=== PATIENT | male | born 1960 | race Native Hawaiian/Other Pacific Islander ===

== ENCOUNTER 2018-10-19 10:19 | Inpatient (IN) | payer SELFPAY ==
--- NOTE | 2018-10-19 10:51 | Emergency Department Report ---
ED General Adult HPI - General Chief complaint: Abdominal Pain Stated complaint: BODY PAIN Time Seen by Provider: 10/19/18 10:41 Source: patient Mode of arrival: Ambulatory Limitations: No Limitations - History of Present Illness Initial comments: Patient is 58 years old male with no significant past medical history. Impression presented to the ER initially telling the triage nurse that he is having abdominal pain. When I went to examine the patient patient stated that he is mata and he was playing with a cucumber last night and part of the cucumber broke into his rectum and patient stating that he is having difficulty getting it out and since then he has been having rectal pain. The patient denied any rectal bleeding, fever, nausea or vomiting. ED Review of Systems ROS: Stated complaint: BODY PAIN Other details as noted in HPI Comment: All other systems reviewed and negative Constitutional: denies: chills, fever Cardiovascular: denies: chest pain, palpitations, dyspnea on exertion Gastrointestinal: other (rectal pain). denies: abdominal pain, nausea, vomiting, diarrhea, constipation, hematemesis, melena, hematochezia Musculoskeletal: denies: back pain, joint swelling, arthralgia, myalgia Neurological: denies: headache, weakness ED Past Medical Hx - Past Medical History Previous Medical History?: No - Surgical History Past Surgical History?: No - Social History Smoking Status: Never Smoker Substance Use Type: None ED Physical Exam - General Limitations: No Limitations General appearance: alert, in no apparent distress - Eye Eye exam: Present: normal appearance - ENT ENT exam: Present: normal exam, normal orophraynx, mucous membranes moist - Neck Neck exam: Present: normal inspection, full ROM. Absent: tenderness, meningismus, lymphadenopathy, thyromegaly - Respiratory Respiratory exam: Present: normal lung sounds bilaterally - Cardiovascular Cardiovascular Exam: Present: regular rate, normal rhythm, normal heart sounds - GI/Abdominal GI/Abdominal exam: Present: soft, normal bowel sounds. Absent: distended, tenderness, guarding, rebound, rigid - Rectal Rectal exam: Present: normal inspection, normal rectal tone, other (only cucumber seeds extracted by digital rectal exam.) - Extremities Exam Extremities exam: Present: normal inspection, full ROM, normal capillary refill. Absent: pedal edema, calf tenderness - Back Exam Back exam: Present: normal inspection, full ROM. Absent: tenderness, CVA tenderness (R), CVA tenderness (L), muscle spasm, paraspinal tenderness, vertebral tenderness - Neurological Exam Neurological exam: Present: alert, oriented X3, CN II-XII intact, normal gait, reflexes normal - Skin Skin exam: Present: warm, intact, normal color ED Course Vital Signs 10/19/18 10:26 Temperature 97.8 F Pulse Rate 114 H Respiratory 18 Rate Blood Pressure 151/87 O2 Sat by Pulse 100 Oximetry - Consultations Consultation #1: 10/19/18 11:21 I discussed the patient was Dr. Gan. Dr Gan stated that patient need to be nothing by mouth and she is coming down to see the patient. ED Medical Decision Making - Lab Data Result diagrams: 10/19/18 11:05 10/19/18 11:05 - Medical Decision Making Patient is 58 years old male with no significant past medical history. Impression presented to the ER initially telling the triage nurse that he is having abdominal pain. When I went to examine the patient patient stated that he is mata and he was playing with a cucumber last night and part of the cucumber broke into his rectum and patient stating that he is having difficulty getting it out and since then he has been having rectal pain. The patient denied any rectal bleeding, fever, nausea or vomiting. Patient evaluated by . Dr. Gan advises to admit patient for observation. I discussed the patient is Dr. Rico, he agreed to admit to medical service. Critical care attestation.: If time is entered above; I have spent that time in minutes in the direct care of this critically ill patient, excluding procedure time. ED Disposition Clinical Impression: Rectal pain, Foreign body of rectum Disposition: OP ADMIT IP TO THIS HOSP Is pt being admited?: Yes Condition: Stable
[2018-10-19 11:15] LABS: Hematocrit 42.8 % (35.5-45.6); Mean Corpuscular HGB Conc 33 % (32-34); Mean Corpuscular Volume 84 fl (84-94); Platelet Count 235 K/mm3 (140-440); Red Blood Count 5.12 M/mm3 (3.65-5.03); Red Cell Distribution Width 15.6 % (13.2-15.2)
[2018-10-19] MEDS ORDERED: NACL 0.9% 1000 ML 1,000 ML IV ONE (11:23)
[2018-10-19] MEDS ORDERED: ZOFRAN IV ONE (11:23)
[2018-10-19] MEDS ORDERED: MORPHINE IV ONE ×2 (11:23→15:31)
[2018-10-19 11:26] LABS: Alanine Aminotransferase 13 units/L (7-56); Albumin 4.1 g/dL (3.9-5); BUN/Creatinine Ratio 14; Blood Urea Nitrogen 13 mg/dL (9-20); Hemolysis Index 12
--- NOTE | 2018-10-19 13:38 | Consultation ---
History of Present Illness Consult date: 10/19/18 Chief complaint: abdominal pain, foreign body in rectum - History of present illness History of present illness: 58 yo bolivian speaking male with no PMHx presents to ER with c/o abdominal pain and foreign body in rectum. Patient states he placed a cucumber up his rectum and when he went to remove it a piece broke off inside which he has been unable to retrieve. He is having lower abdominal pressure and pain near his rectum. No n/v. No f/c. No cp, sob. Past History Past Medical History: No medical history Past Surgical History: No surgical history Social history: no significant social history Family history: no significant family history Review of Systems All systems: negative (10 pt ROS performed and negative except for that listed in HPI) Exam Vital Signs Temp Pulse Resp BP Pulse Ox 97.8 F 114 H 18 151/87 100 10/19/18 10:26 10/19/18 10:26 10/19/18 10:26 10/19/18 10:26 10/19/18 10:26 Narrative exam: Gen: AAOx3. NAD CV: s1, s2+ resp: even and unlabored Abd: soft, nondistended, mild lower abdominal TTP. no r/r/g Ext: no c/c/e Rectal: (performed with nurse in room). +dark blood on gloved finger. normal prostate. Unable to feel foreign object. No masses Results - Labs 10/19/18 11:05 10/19/18 11:05 Abnormal lab results 10/19/18 10/19/18 Range/Units 11:05 11:05 RBC 5.12 H (3.65-5.03) M/mm3 MCH 27 L (28-32) pg RDW 15.6 H (13.2-15.2) % Glucose 122 H (75-100) mg/dL Diabetes panel 10/19/18 Range/Units 11:05 Sodium 139 (137-145) mmol/L Potassium 4.2 (3.6-5.0) mmol/L Chloride 102.3 (98-107) mmol/L Carbon Dioxide 25 (22-30) mmol/L BUN 13 (9-20) mg/dL Creatinine 0.9 (0.8-1.5) mg/dL Glucose 122 H (75-100) mg/dL Calcium 9.0 (8.4-10.2) mg/dL AST 18 (5-40) units/L ALT 13 (7-56) units/L Alkaline Phosphatase 59 (35-129) units/L Total Protein 6.9 (6.3-8.2) g/dL Albumin 4.1 (3.9-5) g/dL Calcium panel 10/19/18 Range/Units 11:05 Calcium 9.0 (8.4-10.2) mg/dL Albumin 4.1 (3.9-5) g/dL Pituitary panel 10/19/18 Range/Units 11:05 Sodium 139 (137-145) mmol/L Potassium 4.2 (3.6-5.0) mmol/L Chloride 102.3 (98-107) mmol/L Carbon Dioxide 25 (22-30) mmol/L BUN 13 (9-20) mg/dL Creatinine 0.9 (0.8-1.5) mg/dL Glucose 122 H (75-100) mg/dL Calcium 9.0 (8.4-10.2) mg/dL Adrenal panel 10/19/18 Range/Units 11:05 Sodium 139 (137-145) mmol/L Potassium 4.2 (3.6-5.0) mmol/L Chloride 102.3 (98-107) mmol/L Carbon Dioxide 25 (22-30) mmol/L BUN 13 (9-20) mg/dL Creatinine 0.9 (0.8-1.5) mg/dL Glucose 122 H (75-100) mg/dL Calcium 9.0 (8.4-10.2) mg/dL Total Bilirubin 0.40 (0.1-1.2) mg/dL AST 18 (5-40) units/L ALT 13 (7-56) units/L Alkaline Phosphatase 59 (35-129) units/L Total Protein 6.9 (6.3-8.2) g/dL Albumin 4.1 (3.9-5) g/dL Assessment and Plan 58 yo M with foreign object of rectum Plan: 1. CT scan A/P to evaluate position of object 2. NPO 3. IVF 4. prn pain control 5. I discussed the possibility of OR with patient in order to retrieve the object. Since I cannot feel it on exam, I cannot try and retrieve it this way. If the object is causing obstruction or colon injurt, will need to place him under anesthesia and retrieve from rectum or perform exploratory laparotomy to remove. I also discussed the possibility of a colostomy. He understands. All discussion was performed using [employer] worker line. All patient questions answered. 6. Further recs pending CT results Thank you, please call with questions. D/W Dr. Becker
[2018-10-19] MEDS ORDERED: MILK OF MAGNESIA PO ONE (14:03)
--- NOTE | 2018-10-19 14:07 | XRay Report ---
FINAL REPORT EXAM: XR PELVIS 1-2V HISTORY: foreign body in the rectum TECHNIQUE: Pelvis, AP and lateral views PRIORS: None. FINDINGS: No radiopaque foreign body seen in the rectal region. Visualized osseous structures are intact. There is minimal degenerative change involving both hips. IMPRESSION: No radiopaque foreign body seen rectal region.
[2018-10-19] MEDS ORDERED: MILK OF MAGNESIA PO SCH ×2 (15:00→20:00)
--- NOTE | 2018-10-19 15:04 | Event Note ---
Date: 10/19/18 Ct scan reviewed - foreign object in upper rectum, lower sigmoid. No obstruction or perforation. Official radiology read is pending. Patient seen and reexamined. He is walking around his room. Abdomen remains soft, ND, mild lower abdominal fullness and TTP. No r/r/g. No peritoneal signs. D/W GI cardiac sonographer. Will start patient on MOM and give suppository. Will observe patient in hospital and allow him a chance to pass the remaining object on his own. I will obtain a KUB in the am. I spoke with patient at length using [employer] puller line #[id number] and explained the plan. He is anxious about passing the object on his own because it "feels tight". I explained to him that if he is unable to pass it on his own by tomorrow, will schedule him for OR to attempt retrieval through rectum. If we are unable to do this, he will need an exploratory laparotomy and may need a colostomy. He understands. All questions were answered. If patient's clinical condition worsens, will proceed to OR urgently. Patient to be admitted to hospital service. Will continue MOM PO. Keep patient NPO and start IVF. Will give one dose of morphine and ativan.
[2018-10-19] MEDS ORDERED: ATIVAN IV ONE (15:32)
[2018-10-19] MEDS ORDERED: ATIVAN ONE (15:39)
[2018-10-19] MEDS ORDERED: MORPHINE ONE (15:39)
--- NOTE | 2018-10-19 15:39 | Cat Scan Report ---
FINAL REPORT EXAM: CT ABDOMEN PELVIS W CON HISTORY: abdominal pain/FB IN THE RECTUM, CUCUMBER TECHNIQUE: CT abdomen and pelvis performed. Images extend from diaphragm to pubic symphysis. IV con trast was administered. Axial images and coronal and sagittal reformatted images were obtained. PRIORS: None. FINDINGS: There is a foreign body in the rectosigmoid colon which is compatible with a cucumber. It measures ab out 9.4 cm length by 4.9 cm transverse. The proximal and of the foreign body is about 8 cm above the anus. The rectal wall distal to the foreign body is thickened. The visualized liver, spleen, pancreas, adrenal glands and kidneys demonstrate no significant abnorma lities. There is a 2.2 cm left renal cyst. There is no abdominal aortic aneurysm. There is no evidence of intestinal obstruction. The appendix is normal. There are no abnormal fluid collections seen. There is no free intraperitoneal air. The bladder is unremarkable. IMPRESSION: Foreign body in the rectosigmoid colon is compatible with a cucumber. Proximal aspect is 8 cm above t he anus. rectal wall below the foreign body is abnormally thickened.
[2018-10-19] MEDS ORDERED: GLYCERIN ADULT 2 GM PR ONE (16:00)
[2018-10-19] MEDS ORDERED: NACL 0.9% 1000 ML 1,000 ML IV SCH (16:00)
[2018-10-19 19:58] LABS: Bacteria,Urine 3+ /HPF (Negative); Bilirubin,Urine NEG (Negative); Blood,Urine NEG (Negative); Color,Urine Yellow (Yellow); Mucus,Urine FEW /HPF; Protein,Urine <15 mg/dL mg/dL (Negative); Urobilinogen,Urine < 2.0 mg/dL (<2.0)
--- NOTE | 2018-10-20 01:42 | Event Note ---
Date: 10/19/18 See H/p in reports Foreign Body -[place] in Rectum To OR tomorrow
[2018-10-20] MEDS ORDERED: SODIUM CHLORIDE FLUSH SYRINGE 10 ML IV PRN (01:46)
[2018-10-20] MEDS ORDERED: TYLENOL PO PRN (01:46)
[2018-10-20] MEDS ORDERED: ZOFRAN IV PRN (01:46)
[2018-10-20] MEDS ORDERED: DILAUDID IV PRN (01:46)
--- NOTE | 2018-10-20 01:58 | History and Physical Report ---
CHIEF COMPLAINT: Foreign body in the rectum. HISTORY OF PRESENT ILLNESS: A 59-year-old with no significant past medical history, comes in for abdominal pain. The patient is apparently mata and was inserted a cucumber into his rectum, which broke into half and could not reach to the other half. He has been having some tightness in the anorectal region and unable to pass it. No rectal bleeding. PAST MEDICAL HISTORY: No significant past medical history. PAST SURGICAL HISTORY: None. SOCIAL HISTORY: Does not smoke. Homosexual by orientation. FAMILY HISTORY: Hypertension. REVIEW OF SYSTEMS: Significant for lower abdominal pain and foreign body in the rectum. PHYSICAL EXAMINATION: GENERAL: Middle-aged male, cooperative during examination. VITAL SIGNS: Temperature 98.4, pulse is 114, respirations 16, blood pressure 129/88. HEENT: Unremarkable. Pupils equal and reactive. NECK: Supple, no lymphadenopathy, no thyromegaly. LUNGS: Clear to auscultation and percussion. Good air entry. CARDIOVASCULAR: S1, S2 heard. No gallop, no murmur, no rub. Apical impulse in left fifth intercostal space and midclavicular line. ABDOMEN: Soft and benign. No hepatosplenomegaly. No guarding, no rigidity. Hernial orifices are normal. EXTREMITIES: Good pedal pulses. No pedal edema. CENTRAL NERVOUS SYSTEM: Alert and oriented x 4, nonfocal exam. LABORATORY DATA: Pretty much normal. Urine shows wbc's of 10. Abdominal CT shows a foreign body in the rectum. Rectus is compatible with the cucumber. Proximal aspect is 8 cm above. Rectal wall below the foreign body is abnormally thickened. ASSESSMENT AND PLAN: Foreign body in the anorectal area. To be removed under general anesthesia or the patient may need an ileostomy. The patient may need exploratory laparotomy for removal of the foreign body with possible colostomy. Hopefully, it can be removed in the surgical suite under anesthesia. Clear liquids to n.p.o. for the time being. Deep venous thrombosis prophylaxis, Lovenox 40 mg subcutaneous daily. JOB# [id number] [facility]/MARISA
[2018-10-20] MEDS: MILK OF MAGNESIA PO SCH ×2 (04:17→04:19)
[2018-10-20 05:18] VITALS: BP 99/60
--- NOTE | 2018-10-20 08:14 | Progress Note ---
Assessment and Plan Assessment and plan: Patient is 59 yo who presented with a self imposed insertion of cucumber which broke off. * XR Pelvis 1-2V: No radiopaque foreign body seen rectal region * CT abd/pelvis with contrast IMPRESSION: Foreign body in the rectosigmoid colon is compatible with a cucumber. Proximal aspect is 8 cm above, the anus. rectal wall below the foreign body is abnormally thickened Foreign body in the anorectal area: General Surgery managing, treat with MOM and see if it passes, possible surgery History Interval history: Patient was seen and examined. Follow-up on current diagnosis of Foreign body in rectum. Overnight uneventful. Patient denies any chest pain, shortness breath, nausea/vomiting or severe headaches. Imaging, nursing note, chart, labs and old chart reviewed. Discussed with patient. Hospitalist Physical - Physical exam Narrative exam: Gen: WDWN, NAD, Awake, Alert, Orientated HEENT: NCAT, EOMI, PERRL, OP Clear Neck: supple, no adenopathy, no thyromegaly, no JVD CVS/Heart: RRR, normal S1S2, pulses present bilaterally Chest/Lungs: CTA B, Symmetrical chest expansion, good air entry bilaterally GI/Abdomen: soft, NTND, good bowel sounds, no guarding or rebound /Bladder: no suprapubic tenderness, no CVA or paraspinal tenderness Extermity/Skin: no c/c/e, no obvious rash MSK: FROM x 4 Neuro: CN 2-12 grossly intact, no new focal deficits Psych: calm - Constitutional Vitals: Temp Pulse Resp BP Pulse Ox 98.3 F 71 16 99/60 95 10/20/18 04:35 10/20/18 04:35 10/20/18 04:35 10/20/18 04:35 10/20/18 04:35 Results - Labs CBC & Chem 7: 10/19/18 11:05 10/19/18 11:05 Labs: Laboratory Last Values WBC 10.1 K/mm3 (4.5-11.0) 10/19/18 11:05 RBC 5.12 M/mm3 (3.65-5.03) H 10/19/18 11:05 Hgb 14.0 gm/dl (11.8-15.2) 10/19/18 11:05 Hct 42.8 % (35.5-45.6) 10/19/18 11:05 MCV 84 fl (84-94) 10/19/18 11:05 MCH 27 pg (28-32) L 10/19/18 11:05 MCHC 33 % (32-34) 10/19/18 11:05 RDW 15.6 % (13.2-15.2) H 10/19/18 11:05 Plt Count 235 K/mm3 (140-440) 10/19/18 11:05 Sodium 139 mmol/L (137-145) 10/19/18 11:05 Potassium 4.2 mmol/L (3.6-5.0) 10/19/18 11:05 Chloride 102.3 mmol/L (98-107) 10/19/18 11:05 Carbon Dioxide 25 mmol/L (22-30) 10/19/18 11:05 Anion Gap 16 mmol/L 10/19/18 11:05 BUN 13 mg/dL (9-20) 10/19/18 11:05 Creatinine 0.9 mg/dL (0.8-1.5) 10/19/18 11:05 Estimated GFR > 60 ml/min 10/19/18 11:05 BUN/Creatinine Ratio 14 % 10/19/18 11:05 Glucose 122 mg/dL (75-100) H 10/19/18 11:05 Calcium 9.0 mg/dL (8.4-10.2) 10/19/18 11:05 Total Bilirubin 0.40 mg/dL (0.1-1.2) 10/19/18 11:05 AST 18 units/L (5-40) 10/19/18 11:05 ALT 13 units/L (7-56) 10/19/18 11:05 Alkaline Phosphatase 59 units/L (35-129) 10/19/18 11:05 Total Protein 6.9 g/dL (6.3-8.2) 10/19/18 11:05 Albumin 4.1 g/dL (3.9-5) 10/19/18 11:05 Albumin/Globulin Ratio 1.5 % 10/19/18 11:05 Urine Color Yellow (Yellow) 10/19/18 19:35 Urine Turbidity Slightly-cloudy (Clear) 10/19/18 19:35 Urine pH 6.0 (5.0-7.0) 10/19/18 19:35 Ur Specific [place] 1.011 (1.003-1.030) 10/19/18 19:35 Urine Protein <15 mg/dl mg/dL (Negative) 10/19/18 19:35 Urine Glucose (UA) Neg mg/dL (Negative) 10/19/18 19:35 Urine Ketones Tr mg/dL (Negative) 10/19/18 19:35 Urine Blood Neg (Negative) 10/19/18 19:35 Urine Nitrite Neg (Negative) 10/19/18 19:35 Urine Bilirubin Neg (Negative) 10/19/18 19:35 Urine Urobilinogen < 2.0 mg/dL (<2.0) 10/19/18 19:35 Ur Leukocyte Esterase Sm (Negative) 10/19/18 19:35 Urine WBC (Auto) 10.0 /HPF (0.0-6.0) H 10/19/18 19:35 Urine RBC (Auto) 1.0 /HPF (0.0-6.0) 10/19/18 19:35 U Epithel Cells (Auto) 5.0 /HPF (0-13.0) 10/19/18 19:35 Urine Bacteria (Auto) 3+ /HPF (Negative) 10/19/18 19:35 Urine Mucus Few /HPF 10/19/18 19:35
--- NOTE | 2018-10-20 09:46 | Progress Note ---
Assessment and Plan 58 yo M with foreign body in rectum Plan: 1. foreign body expelled via rectum intact 2. reg diet 3. dc home D/W Dr. Rees Thank you, please call with questions. Subjective Date of service: 10/20/18 Narrative: Pt seen and examined. No complaints. Feels well. Abdominal pain and rectal pain is resolved. Patient passed foreign object via rectum this am. Objective Vital Signs - 12hr 10/19/18 10/19/18 10/20/18 22:00 23:03 04:35 Temperature 98.0 F 98.3 F Pulse Rate 73 71 Respiratory 18 16 16 Rate Blood Pressure 96/61 99/60 O2 Sat by Pulse 97 95 Oximetry - General physical appearance Narrative Exam: Gen: AAOx3. NAD CV: S1, s2+ resp; even and unlabored Abd: soft, NT, ND Ext: no c/c/e Foreign body examined and is intact - Labs 10/19/18 11:05 10/19/18 11:05 Diabetes panel 10/19/18 Range/Units 11:05 Sodium 139 (137-145) mmol/L Potassium 4.2 (3.6-5.0) mmol/L Chloride 102.3 (98-107) mmol/L Carbon Dioxide 25 (22-30) mmol/L BUN 13 (9-20) mg/dL Creatinine 0.9 (0.8-1.5) mg/dL Glucose 122 H (75-100) mg/dL Calcium 9.0 (8.4-10.2) mg/dL AST 18 (5-40) units/L ALT 13 (7-56) units/L Alkaline Phosphatase 59 (35-129) units/L Total Protein 6.9 (6.3-8.2) g/dL Albumin 4.1 (3.9-5) g/dL Calcium panel 10/19/18 Range/Units 11:05 Calcium 9.0 (8.4-10.2) mg/dL Albumin 4.1 (3.9-5) g/dL Pituitary panel 10/19/18 Range/Units 11:05 Sodium 139 (137-145) mmol/L Potassium 4.2 (3.6-5.0) mmol/L Chloride 102.3 (98-107) mmol/L Carbon Dioxide 25 (22-30) mmol/L BUN 13 (9-20) mg/dL Creatinine 0.9 (0.8-1.5) mg/dL Glucose 122 H (75-100) mg/dL Calcium 9.0 (8.4-10.2) mg/dL Adrenal panel 10/19/18 Range/Units 11:05 Sodium 139 (137-145) mmol/L Potassium 4.2 (3.6-5.0) mmol/L Chloride 102.3 (98-107) mmol/L Carbon Dioxide 25 (22-30) mmol/L BUN 13 (9-20) mg/dL Creatinine 0.9 (0.8-1.5) mg/dL Glucose 122 H (75-100) mg/dL Calcium 9.0 (8.4-10.2) mg/dL Total Bilirubin 0.40 (0.1-1.2) mg/dL AST 18 (5-40) units/L ALT 13 (7-56) units/L Alkaline Phosphatase 59 (35-129) units/L Total Protein 6.9 (6.3-8.2) g/dL Albumin 4.1 (3.9-5) g/dL
--- NOTE | 2018-10-20 09:54 | Discharge Summary ---
Providers - Providers Date of Admission: 10/19/18 14:44 Date of discharge: 10/20/18 Attending physician: RAMÓN CARNEY Primary care physician: HEMANTH DAVIS Hospitalization Condition: Stable Hospital course: Patient is 59 yo who presented with a self imposed insertion of cucumber which broke off and spontaneous passed out intact * XR Pelvis 1-2V: No radiopaque foreign body seen rectal region * CT abd/pelvis with contrast IMPRESSION: Foreign body in the rectosigmoid colon is compatible with a cucumber. Proximal aspect is 8 cm above, the anus. rectal wall below the foreign body is abnormally thickened Foreign body/Cumcumber in the anorectal area; counseling done UTI vs Prostatitis Disposition: DC-01 TO HOME OR SELFCARE Time spent for discharge: 32 minutes Core Measure Documentation - Palliative Care Palliative Care/ Comfort Measures: Not Applicable - Core Measures Any of the following diagnoses?: none - VTE Discharge Requirements Deep Vein Thrombosis/Pulmonary Embolism Present on Admission: No Has pt received <5 days of overlap therapy or INR<2.0: No Anticoagulant overlap therapy prescribed at discharge: No Contraindication No Overlap Therapy order at DC: Not Indicated Exam - Physical Exam Narrative exam: Gen: WDWN, NAD, Awake, Alert, Orientated HEENT: NCAT, EOMI, PERRL, OP Clear Neck: supple, no adenopathy, no thyromegaly, no JVD CVS/Heart: RRR, normal S1S2, pulses present bilaterally Chest/Lungs: CTA B, Symmetrical chest expansion, good air entry bilaterally GI/Abdomen: soft, NTND, good bowel sounds, no guarding or rebound /Bladder: no suprapubic tenderness, no CVA or paraspinal tenderness Extermity/Skin: no c/c/e, no obvious rash MSK: FROM x 4 Neuro: CN 2-12 grossly intact, no new focal deficits Psych: calm - Constitutional Vitals: Temp Pulse Resp BP Pulse Ox 98.3 F 71 16 99/60 95 10/20/18 04:35 10/20/18 04:35 10/20/18 04:35 10/20/18 04:35 10/20/18 04:35 Plan Activity: other (no strenous activity) Diet: regular Follow up with: HEMANTH DAVIS [Primary Care Provider] - 3-5 Days Prescriptions: Ciprofloxacin HCl [Ciprofloxacin TAB] 500 mg PO BID #14 tablet
[2018-10-20] MEDS ORDERED: PEPCID IV SCH (10:00)
[2018-10-20] MEDS ORDERED: SODIUM CHLORIDE FLUSH SYRINGE 10 ML IV SCH (10:00)
--- NOTE | 2018-10-20 11:40 | XRay Report ---
KUB: Colonic foreign body. There is an unremarkable gas pattern. There is no evidence of bowel distention. No foreign body is identified in the pelvis as seen on recent CT scan. It is of note however that the foreign body was of soft tissue density and may not be observable on standard imaging. Impression: No significant finding.
== END 2018-10-20 10:30 | disposition home or self-care (01) | DRG 394 ==
LOC: ED 10:19 → 3A 14:44
PROVIDERS: ADMIT Internal Medicine; ATTEND Internal Medicine
DX: T18.5XXA Foreign body in anus and rectum, initial encounter (principal); N39.0 Urinary tract infection, site not specified; N41.9 Inflammatory disease of prostate, unspecified; X58.XXXA Exposure to other specified factors, initial encounter; Z82.49 Family history of ischemic heart disease and other diseases of the circulatory system; Y93.89 Activity, other specified; Y92.098 Other place in other non-institutional residence as the place of occurrence of the external cause; Y99.8 Other external cause status
CPT/HCPCS: 36415; 72170; 74018; 74177; 80053; 81001; 85027; G0378; J2060; J2270; J2405; J7030; Q9967

== ENCOUNTER 2021-01-21 17:40 | Emergency (ER) | payer SELFPAY ==
--- NOTE | 2021-01-21 19:28 | Event Note ---
ED Screening Note Date of service: 01/21/21 Time: 19:24 ED Screening Note: 60-year-old male presents to the emergency room for intermittent abdominal pain x3 weeks. Patient states he has trouble having a bowel movement. Patient states that he had seen by his doctor and was placed on amoxicillin 500 mg placed on Protonix and Flagyl with no relief. Patient admits to intermittent diarrhea. Denies any fever no chills no nausea no vomiting. Patient states he had an ultrasound done that was inconclusive. Presents here for further evaluation for abdominal pain. Denies any testicular pain or swelling This initial assessment/diagnostic orders/clinical plan/treatment(s) is/are sub ject to change based on patients health status, clinical progression and re- assessment by fellow clinical providers in the ED. Further treatment and workup at subsequent clinical providers discretion. Patient/guardian urged not to elope from the ED as their condition may be serious if not clinically assessed and managed. Initial orders include: CBC CMP urinalysis. CT abdomen for abdominal pain and tenderness.
[2021-01-21 20:11] LABS: Basophils # (Auto) 0.1 K/mm3 (0.0-0.1); Basophils % (Auto) 1.4 % (0.0-1.8); Eosinophils # (Auto) 0.1 K/mm3 (0.0-0.4); Eosinophils % (Auto) 2.9 % (0.0-4.3); Hemoglobin 14.6 gm/dl (11.8-15.2); Lymphocytes # (Auto) 1.2 K/mm3 (1.2-5.4); Lymphocytes % (Auto) 24.7 % (13.4-35.0); Mean Corpuscular HGB Conc 33 % (32-34); Mean Corpuscular Volume 89 fl (84-94); Monocytes # (Auto) 0.5 K/mm3 (0.0-0.8); Monocytes % (Auto) 10.5 % (0.0-7.3); Platelet Count 205 K/mm3 (140-440); Red Blood Count 4.96 M/mm3 (3.65-5.03); Red Cell Distribution Width 15.1 % (13.2-15.2)
[2021-01-21 20:35] LABS: Alanine Aminotransferase 13 units/L (7-56); Albumin 4.4 g/dL (3.9-5); BUN/Creatinine Ratio 15; Blood Urea Nitrogen 12 mg/dL (9-20); Calcium 9.2 mg/dL (8.4-10.2); Hemolysis Index 9
[2021-01-21 21:07] LABS: Bilirubin,Urine NEG (Negative); Blood,Urine NEG (Negative); Color,Urine Yellow (Yellow); Mucus,Urine FEW /HPF; Protein,Urine <15 mg/dL mg/dL (Negative); Urobilinogen,Urine < 2.0 mg/dL (<2.0); WBC,Urine < 1.0 /HPF (0.0-6.0)
[2021-01-22] MEDS ORDERED: ONDANSETRON 4 MG/2 ML INJ IV ONE (03:01)
[2021-01-22] MEDS ORDERED: fentaNYL 100 MCG/2 ML INJ IV ONE (03:01)
--- NOTE | 2021-01-22 03:05 | Emergency Department Report ---
HPI - General Chief Complaint: Abdominal Pain Time Seen by Provider: 01/21/21 22:02 - [facility] HPI: Room 3 The patient is a 60-year-old male present with a chief complaint of abdominal pain. The patient states for the past 2 weeks he has had intermittent lower abdominal pain addition to constipation. Patient denies nausea or vomiting. Patient denies dysuria or hematuria. Patient denies history of fever. Patient currently gives his abdominal pain a score of 6-7/10 ED Past Medical Hx - Past Medical History Previous Medical History?: No - Surgical History Past Surgical History?: No - Family History Family history: no significant - Social History Smoking Status: Never Smoker Substance Use Type: None (Denies illicit drug use) - Medications Home Medications: Home Medications Medication Instructions Recorded Confirmed Last Taken Type Ciprofloxacin HCl [Ciprofloxacin 500 mg PO BID #14 tablet 10/20/18 Unknown Rx TAB] Docusate Sodium [Colace] 100 mg PO BID PRN #60 capsule 01/22/21 Unknown Rx HYDROcodone/APAP 5-325 [[place] 1 - 2 each PO Q6HR PRN #10 tablet 01/22/21 Unknown Rx 5/325] Hydrocortisone [Anucort-HC SUPPOS] 25 mg RC BID #10 supp.rect 01/22/21 Unknown Rx Lactulose [Cephulac] 20 gm PO QDAY PRN #90 ml 01/22/21 Unknown Rx ED Review of Systems ROS: Stated complaint: GROIN PAIN Other details as noted in HPI Constitutional: denies: fever Eyes: denies: eye pain ENT: denies: throat pain Respiratory: no symptoms reported Cardiovascular: denies: chest pain Endocrine: no symptoms reported Gastrointestinal: abdominal pain, constipation. denies: nausea, vomiting Genitourinary: denies: dysuria, hematuria Musculoskeletal: denies: back pain Neurological: denies: headache Physical Exam - Physical Exam Vital Signs: Vital Signs 01/21/21 18:02 Temperature 98.3 F Pulse Rate 80 Respiratory 12 Rate Blood Pressure 108/69 [Right] O2 Sat by Pulse 97 Oximetry Physical Exam: GENERAL: The patient is well-developed well-nourished male lying on stretcher not appearing to be in acute distress. [] HEENT: Normocephalic. Atraumatic. Extraocular motions are intact. Patient has moist mucous membranes. NECK: Supple. Trachea midline CHEST/LUNGS: Clear to auscultation. There is no respiratory distress noted. HEART/CARDIOVASCULAR: Regular. There is no tachycardia. There is no gallop rub or murmur. ABDOMEN: Abdomen is soft, nontender to palpation in all quadrants however patient complains of burning pain in the lower abdomen. Patient has normal bowel sounds. There is no abdominal distention. SKIN: There is no rash. There is no edema. There is no diaphoresis. NEURO: The patient is awake, alert, and oriented. The patient is cooperative. The patient has no focal neurologic deficits. The patient has normal speech and gait. MUSCULOSKELETAL: There is no evidence of acute injury. ED Course Vital Signs 01/21/21 18:02 Temperature 98.3 F Pulse Rate 80 Respiratory 12 Rate Blood Pressure 108/69 [Right] O2 Sat by Pulse 97 Oximetry ED Medical Decision Making - Lab Data Result diagrams: 01/21/21 19:30 01/21/21 19:30 Laboratory Tests 01/21/21 01/21/21 01/21/21 19:30 19:30 20:47 WBC 5.0 RBC 4.96 Hgb 14.6 Hct 44.0 MCV 89 MCH 30 MCHC 33 RDW 15.1 Plt Count 205 Lymph % (Auto) 24.7 [place] % (Auto) 10.5 H Eos % (Auto) 2.9 Baso % (Auto) 1.4 Lymph # (Auto) 1.2 [place] # (Auto) 0.5 Eos # (Auto) 0.1 Baso # (Auto) 0.1 Seg Neutrophils % 60.5 Seg Neutrophils # 3.0 Sodium 138 Potassium 4.1 Chloride 101.2 Carbon Dioxide 28 Anion Gap 13 BUN 12 Creatinine 0.8 Estimated GFR > 60 BUN/Creatinine Ratio 15 Glucose 118 H Calcium 9.2 Total Bilirubin 0.50 AST 17 ALT 13 Alkaline Phosphatase 64 Total Protein 6.7 Albumin 4.4 Albumin/Globulin Ratio 1.9 Lipase 39 Urine Color Yellow Urine Turbidity Clear Urine pH 5.0 Ur Specific [place] 1.016 Urine Protein <15 mg/dl Urine Glucose (UA) Neg Urine Ketones Neg Urine Blood Neg Urine Nitrite Neg Urine Bilirubin Neg Urine Urobilinogen < 2.0 Ur Leukocyte Esterase Neg Urine WBC (Auto) < 1.0 Urine RBC (Auto) 3.0 Urine Mucus Few - Radiology Data Radiology results: report reviewed (CT abdomen pelvis), image reviewed (CT abdomen pelvis) [address] [place] [address] Cat Scan Report Signed Patient: RICKY MENDEZ MR#: [id number] : 1960 Acct:[id number] Age/Sex: 60 / M ADM Date: 01/21/21 Loc: ED Attending Dr: Ordering Physician: JENNIFER BURDICK Date of Service: 01/21/21 Procedure(s): CT abdomen pelvis w con Accession Number(s): [id number] cc: JENNIFER BURDICK CT ABDOMEN AND PELVIS WITH CONTRAST INDICATION / CLINICAL INFORMATION: Abdominal pain. TECHNIQUE: Axial CT images were obtained through the abdomen and pelvis after Omnipaque 300, 100 cc [address] All [address] scans at this location are performed using CT dose reduction for ALARA by means of automated exposure control. COMPARISON: 10/19/2018. FINDINGS: LOWER CHEST: Persistent scarring right base. Moderate/large sized hiatal hernia. LIVER: 2 subcentimeter cysts. GALLBLADDER: No significant abnormality. BILE DUCTS: No significant abnormality. PANCREAS: No significant abnormality. SPLEEN: No significant abnormality. ADRENALS: No significant abnormality. RIGHT KIDNEY / URETER: No significant abnormality. LEFT KIDNEY / URETER: 2.5 cm cyst upper pole. STOMACH / SMALL BOWEL: No significant abnormality. COLON: Mild thickening at the rectum. APPENDIX: No significant abnormality. PERITONEUM: No free fluid. No free air. No fluid collection. LYMPH NODES: No significant adenopathy. VASCU LAR STRUCTURES: No significant abnormality. URINARY BLADDER: Diffuse symmetric bladder wall thickening. REPRODUCTIVE ORGANS: No significant abnormality. ADDITIONAL FINDINGS: None. SKELETAL SYSTEM: No significant abnormality. IMPRESSION: 1. Mild rectal inflammation. 2. Diffuse symmetric bladder wall thickening. Signer Name: Ward Wheately MD Signed: 01/22/2021 3:41 AM Workstation Name: [id number] Transcribed By: ES Dictated By: Ward Wheatley MD Electronically Authenticated By: Ward Wheatley MD Signed Date/Time: 01/22/21340 DD/ 4 TD/TT: Print Cancel - Differential Diagnosis Diverticulitis, UTI, pyelonephritis, renal colic, constipation, gastritis Critical care attestation.: If time is entered above; I have spent that time in minutes in the direct care of this critically ill patient, excluding procedure time. ED Disposition Clinical Impression: Abdominal pain, Constipation, Rectal inflammation Disposition: TO HOME OR SELFCARE Is pt being admited?: No Does the pt Need Aspirin: No Condition: Stable Instructions: Abdominal Pain, Adult, [id number] Additional Instructions: Return to the emergency department should you develop worsening symptoms, inability to tolerate food or liquids, high fever or any other concerns Prescriptions: Hydrocortisone [Anucort-HC SUPPOS] 25 mg RC BID #10 supp.rect Lactulose [Cephulac] 20 gm PO QDAY PRN #90 ml PRN Reason: Constipation Docusate Sodium [Colace] 100 mg PO BID PRN #60 capsule PRN Reason: Constipation HYDROcodone/APAP 5-325 [[place] 5/325] 1 - 2 each PO Q6HR PRN #10 tablet PRN Reason: Pain Referrals: PRIMARY CARE, [Primary Care Provider] - 3-5 Days KEVIN FARIA MD [Staff Physician] - 3-5 Days (Dr. Faria is a director of adult epilepsy. Please follow-up with him for further evaluation) Time of Disposition: 04:24
--- NOTE | 2021-01-22 03:46 | Cat Scan Report ---
CT ABDOMEN AND PELVIS WITH CONTRAST INDICATION / CLINICAL INFORMATION: Abdominal pain. TECHNIQUE: Axial CT images were obtained through the abdomen and pelvis after Omnipaque 300, 100 cc I V contrast. All CT scans at this location are performed using CT dose reduction for ALARA by means o f automated exposure control. COMPARISON: 10/19/2018. FINDINGS: LOWER CHEST: Persistent scarring right base. Moderate/large sized hiatal hernia. LIVER: 2 subcentimeter cysts. GALLBLADDER: No significant abnormality. BILE DUCTS: No significant abnormality. PANCREAS: No significant abnormality. SPLEEN: No significant abnormality. ADRENALS: No significant abnormality. RIGHT KIDNEY / URETER: No significant abnormality. LEFT KIDNEY / URETER: 2.5 cm cyst upper pole. STOMACH / SMALL BOWEL: No significant abnormality. COLON: Mild thickening at the rectum. APPENDIX: No significant abnormality. PERITONEUM: No free fluid. No free air. No fluid collection. LYMPH NODES: No significant adenopathy. VASCULAR STRUCTURES: No significant abnormality. URINARY BLADDER: Diffuse symmetric bladder wall thickening. REPRODUCTIVE ORGANS: No significant abnormality. ADDITIONAL FINDINGS: None. SKELETAL SYSTEM: No significant abnormality. IMPRESSION: 1. Mild rectal inflammation. 2. Diffuse symmetric bladder wall thickening. Signer Name: Ward Wheatley MD Signed: 01/22/2021 3:41 AM Workstation Name: [id number]
[2021-01-22 04:57] VITALS: BP 113/79
== END 2021-01-22 04:45 | disposition home or self-care (01) ==
LOC: ED 17:40
DX: K62.89 Other specified diseases of anus and rectum (principal); K59.00 Constipation, unspecified; R10.9 Unspecified abdominal pain; Z79.899 Other long term (current) drug therapy
CPT/HCPCS: 36415; 74177; 80053; 81001; 83690; 85025; 96374; 96375; 99284; J2405; J3010; Q9967